=== PATIENT | male | born 1995 | race Caucasian/White ===

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

== ENCOUNTER 2021-05-04 22:02 | Emergency (ER) | payer BC, OTHER ==
[2021-05-04 22:10] VITALS: BP 131/85; RESP 18; TEMP 97.6
--- NOTE | 2021-05-04 22:30 | ED ---
General Adult HPI - General Chief complaint: Chest Pain Stated complaint: R Chest Injury Source: patient, family (Uncle), RN notes reviewed Mode of arrival: ambulatory Limitations: no limitations - History of Present Illness Initial comments: Patient states that he was making coffee standing in the kitchen and his cerebral palsy, similar to lose strength in his legs falling forward and hitting the corner of the counter with his right chest. Patient states that it has progressively been getting worse and hurts to take a deep breath or cough. He states that while he was getting his daughter back today Worse and he called his uncle to bring him to the hospital. He has no bruising to the chest. Denies fevers or any other injuries. Patient states he took Motrin around 9:30 before he ate dinner. He states he does not take any other medications on a daily basis no medical problems other than his cerebral palsy. He states that the pain is 7 out of 10. -: days(s) (5) Location: chest (Right ribs) Radiation: non-radiation Severity scale (1-10): 7 Quality: sharp Consistency: constant Improves with: immobilization Worsens with: movement, other Associated Symptoms: denies other symptoms (Cough) Treatments Prior to Arrival: NSAID (2129) - Related Data Home Medications Medication Instructions Recorded Confirmed No Known Home Medications 11/17/16 11/17/16 Allergies Allergy/AdvReac Type Severity Reaction Status Date / Time amoxicillin Allergy Unknown Verified 05/04/21 22:09 Childhood Sulfa (Sulfonamide Allergy Unknown Verified 05/04/21 22:09 Antibiotics) Childhood Review of Systems ROS Statement: Those systems with pertinent positive or pertinent negative responses have been documented in the HPI. ROS Other: All systems not noted in ROS Statement are negative. Past Medical History Past Medical History: GI Bleed Additional Past Medical History / Comment(s): cerebral palsy History of Any Multi-Drug Resistant Organisms: None Reported Past Surgical History: Back Surgery, Orthopedic Surgery Additional Past Surgical History / Comment(s): clavicle surgery with pin Past Anesthesia/Blood Transfusion Reactions: Postoperative Nausea & Vomiting (PONV) Past Psychological History: No Psychological Hx Reported Past Alcohol Use History: None Reported Past Drug Use History: None Reported - Past Family History Mother Family Medical History: No Reported History General Exam Limitations: no limitations, physical limitation (Cerebral palsy) General appearance: alert, in no apparent distress Head exam: Present: atraumatic, normocephalic, normal inspection Eye exam: Present: normal appearance, PERRL, EOMI. Absent: scleral icterus, conjunctival injection, periorbital swelling Pupils: Present: normal accommodation ENT exam: Present: normal exam, normal oropharynx, mucous membranes moist Neck exam: Present: normal inspection, full ROM. Absent: tenderness, meningismus, lymphadenopathy, thyromegaly Respiratory exam: Present: chest wall tenderness (Right side), decreased breath sounds. Absent: respiratory distress, wheezes, rales, rhonchi (Right side), stridor, accessory muscle use Cardiovascular Exam: Present: regular rate, normal rhythm, normal heart sounds. Absent: systolic murmur, diastolic murmur, rubs, gallop, clicks GI/Abdominal exam: Present: soft, normal bowel sounds. Absent: distended, tenderness, guarding, rebound, rigid Extremities exam: Present: normal inspection, full ROM, normal capillary refill. Absent: tenderness, pedal edema, joint swelling, calf tenderness Back exam: Present: normal inspection, full ROM, other (Scar from previous spinal surgery). Absent: tenderness, CVA tenderness (R), CVA tenderness (L), muscle spasm, paraspinal tenderness, vertebral tenderness, rash noted Neurological exam: Present: alert, oriented X3, CN II-XII intact Psychiatric exam: Present: normal affect, normal mood Skin exam: Present: warm, dry, intact, normal color. Absent: rash, cyanosis, diaphoretic, erythema, urticaria, petechiae, pallor, mottled, abrasion Course Vital Signs 05/04/21 05/04/21 22:04 22:29 Temperature 97.6 F Pulse Rate 86 Respiratory 18 18 Rate Blood Pressure 131/85 O2 Sat by Pulse 98 Oximetry Medical Decision Making - Medical Decision Making Chest x-ray shows no active cardiopulmonary disease no fractures and no pneumothorax. There is a plate fixation in old right clavicle fracture that is intact. Patient's oxygen level is 96% he is having no difficulty breathing. Patient will be directed to take Motrin as needed for pain. Encouraged to deep breath and cough. Patient also directed to return to the emergency room with any fever difficulty in breathing. Case discussed with Dr. Dickson was agreeable to this plan of care. Disposition Clinical Impression: Rib pain on right side Clinical Impression: (Ruled Out): Painful rib Disposition: HOME SELF-CARE Condition: Good Instructions (If sedation given, give patient instructions): Rib Contusion (ED) Additional Instructions: Return to the emergency room with a shortness of breath, coughing up blood, fevers or worsening symptoms. Take Motrin as seen for pain Is patient prescribed a controlled substance at d/c from ED?: No Referrals: None,Stated [Primary Care Provider] - 1-2 days Time of Disposition: 23:39
--- NOTE | 2021-05-04 23:18 | XR ---
EXAMINATION TYPE: XR chest 2V DATE OF EXAM: 05/04/2021 COMPARISON: NONE HISTORY: Fall. Pain. TECHNIQUE: 2 views FINDINGS: Heart and mediastinum are normal. Lungs are clear. Diaphragm is normal. Bony thorax appears normal. There is plate fixing old right clavicle fracture. IMPRESSION: No active cardiopulmonary disease. Normal heart.
[2021-05-04] MEDS ORDERED: ACET/COD 300 MG/30 MG STARTER PACK 6 TAB BTL PO STA (23:39)
[2021-05-05 00:13] VITALS: PULSE 88
== END 2021-05-05 00:13 | disposition home or self-care (01) ==
LOC: EC 22:02
DX: R07.81 Pleurodynia (principal); W22.09XA Striking against other stationary object, initial encounter
CPT/HCPCS: 71046; 99284

== ENCOUNTER 2021-05-10 13:31 | Emergency (ER) | payer OTHER ==
[2021-05-10 13:45] VITALS: BP 133/91; PULSE 108; RESP 18; TEMP 98.7
[2021-05-10] MEDS ORDERED: CLINDAMYCIN 150 MG CAP PO STA (14:08)
--- NOTE | 2021-05-10 14:13 | ED ---
ENT HPI - General Chief complaint: Dental/Oral Stated complaint: dental pain Time Seen by Provider: 05/10/21 13:52 Source: patient Mode of arrival: ambulatory Limitations: no limitations - History of Present Illness Initial comments: 26-year-old male presents emergency Department with a chief complaint of dental pain. Patient reports she developed pain over the last several days. States he was planning on seeing the dentist but cannot get in on time. Reports she has developed swelling to the region as well as tenderness. States the pain is exacerbated with mastication alleviated at rest. Denies any fevers or chills. Not diabetic. Denies changes to his voice, sore throat or drooling. - Related Data Previous Rx's Medication Instructions Recorded Clindamycin [Cleocin] 150 mg PO Q6H #40 capsule 05/10/21 Allergies Allergy/AdvReac Type Severity Reaction Status Date / Time amoxicillin Allergy Unknown Verified 05/10/21 13:45 Childhood Sulfa (Sulfonamide Allergy Unknown Verified 05/10/21 13:45 Antibiotics) Childhood Review of Systems ROS Statement: Those systems with pertinent positive or pertinent negative responses have been documented in the HPI. ROS Other: All systems not noted in ROS Statement are negative. Past Medical History Past Medical History: GI Bleed Additional Past Medical History / Comment(s): cerebral palsy History of Any Multi-Drug Resistant Organisms: None Reported Past Surgical History: Back Surgery, Orthopedic Surgery Additional Past Surgical History / Comment(s): clavicle surgery with pin Past Anesthesia/Blood Transfusion Reactions: Postoperative Nausea & Vomiting (PONV) Past Psychological History: No Psychological Hx Reported Smoking Status: Never smoker Past Alcohol Use History: None Reported Past Drug Use History: None Reported - Past Family History Mother Family Medical History: No Reported History General Exam Limitations: no limitations General appearance: alert, in no apparent distress Head exam: Present: atraumatic, normocephalic, normal inspection Eye exam: Present: normal appearance, PERRL, EOMI Pupils: Present: normal accommodation ENT exam: Present: normal exam, mucous membranes moist. Absent: normal oropharynx (Periapical abscess noted in the right lower region of the mandible.) Neck exam: Present: normal inspection, full ROM. Absent: tenderness, lymphadenopathy Respiratory exam: Present: normal lung sounds bilaterally. Absent: respiratory distress, wheezes, rales, rhonchi, stridor Cardiovascular Exam: Present: regular rate, normal rhythm, normal heart sounds. Absent: systolic murmur Extremities exam: Present: normal inspection, full ROM Back exam: Present: normal inspection, full ROM. Absent: tenderness Neurological exam: Present: alert, oriented X3 Psychiatric exam: Present: normal affect, normal mood Skin exam: Present: warm, dry, intact, normal color Course Vital Signs 05/10/21 13:42 Temperature 98.7 F Pulse Rate 108 H Respiratory 18 Rate Blood Pressure 133/91 O2 Sat by Pulse 96 Oximetry Procedures - Incision & Drainage Consent Obtained: verbal consent Indication: Dental abscess Site: oral Size (cm): 1 Sterile Field Used?: No Needle Aspiration Performed?: Yes I&D Drainage Obtained: Pus, Blood Culture Obtained?: No Complications: pain, bleeding Patient Tolerated Procedure: well, no complications Medical Decision Making - Medical Decision Making 26-year-old male presents to emergency department with a chief complaint of dental pain and facial swelling. On physical examination, periapical abscess in the right lower region of the oral cavity. Incision and drainage performed and was able to get moderate amounts of blood and pus. Patient reported improvement in his symptoms after. The swelling had also decreased as well. Patient will be started on clindamycin because he has an ALLERGY to amoxicillin. Will be discharged with clindamycin. Advised to use salt water rinses. Advised follow-up with the dentist. Case discussed with physician. Disposition Clinical Impression: Dental abscess, Toothache Disposition: HOME SELF-CARE Condition: Stable Instructions (If sedation given, give patient instructions): Abscess (ED) Additional Instructions: Take prescribed medication as directed. Follow with the dentist. Return to emergency department if symptoms worsen. Prescriptions: Clindamycin [Cleocin] 150 mg PO Q6H #40 capsule Is patient prescribed a controlled substance at d/c from ED?: No Referrals: None,Stated [Primary Care Provider] - 1-2 days Time of Disposition: 14:13
== END 2021-05-10 14:31 | disposition home or self-care (01) ==
LOC: EC 13:31
DX: K04.7 Periapical abscess without sinus (principal); Z88.0 Allergy status to penicillin
CPT/HCPCS: 41800; 99282

== ENCOUNTER → 2022-12-01 | Outpatient (CLI) | payer OTHER ==
[2022-12-01 14:37] LABS: African American GFR (CKD) 137.1 (60.0-200.0); Albumin 4.1 g/dL (3.8-4.9); Albumin/Globulin Ratio 1.37 (1.60-3.17); Blood Urea Nitrogen 9.9 mg/dL (9.0-27.0); C Reactive Protein 1.5 mg/dL (0.00-0.80); Calcium 9.4 mg/dL (8.7-10.3); Non-African American GFR(CKD) 118.3 (60.0-200.0); Potassium 3.8 mmol/L (3.5-5.5); Total Bilirubin 0.5 mg/dL (0.30-1.20); Total Protein 7.1 g/dL (6.2-8.2)
[2022-12-01 16:46] LABS: Basophils # (A) 0.05 X 10*3/uL (0.00-0.10); Basophils % (A) 0.6 %; Eosinophils # (A) 0.51 X 10*3/uL (0.04-0.35); Eosinophils % (A) 6.3 %; HCT 45.2 % (39.6-50.0); Immature Grans, Automated 0.6 %; Lymphocytes # (A) 1.58 X 10*3/uL (0.90-5.00); Lymphocytes % (A) 19.6 %; MCH 32.8 pg (27.0-32.0); MCHC 33.2 g/dL (32.0-37.0); MCV 98.9 fL (80.0-97.0); Mean Platelet Volume 8.6 fL (9.5-12.2); Monocytes # (A) 0.66 X 10*3/uL (0.20-1.00); Monocytes % (A) 8.2 %; NRBC Per 100 WBC 0 /100 WBCS (0.0-0.0); Neutrophils # (A) 5.22 X 10*3/uL (1.80-7.70); Neutrophils % (A) 64.7 %; Platelet Count 352 X 10*3/uL (140-440); RBC 4.57 X 10*6/uL (4.40-5.60); RDW 11.9 % (11.5-14.5); WBC 8.07 X 10*3/uL (4.50-10.00)
[2022-12-01 17:06] LABS: Erythrocyte Sedimentation Rate 7 mm/Hr (0-15)
== END | disposition home or self-care (01) ==
LOC: LABWHC1 08:21
PROVIDERS: ATTEND Nurse Practitioner Family
DX: K51.90 Ulcerative colitis, unspecified, without complications (principal)
CPT/HCPCS: 36415; 80053; 85025; 85652; 86140

== ENCOUNTER → 2023-09-19 | Outpatient (CLI) | payer MEDICARE, OTHER ==
[2023-09-19 15:31] LABS: Basophils # (A) 0.07 X 10*3/uL (0.00-0.10); Eosinophils # (A) 0.18 X 10*3/uL (0.04-0.35); Eosinophils % (A) 5.1 %; HCT 44.5 % (39.6-50.0); HGB 15.3 g/dL (13.0-17.0); Immature Grans, Automated 0 %; Lymphocytes # (A) 1.57 X 10*3/uL (0.90-5.00); Lymphocytes % (A) 44.5 %; MCHC 34.4 g/dL (32.0-37.0); MCV 95.9 FL (80.0-97.0); Mean Platelet Volume 9.9 FL (9.5-12.2); Monocytes # (A) 0.37 X 10*3/uL (0.20-1.00); Monocytes % (A) 10.5 %; NRBC Per 100 WBC 0 X 10*3/uL (0.00-0.01); Neutrophils # (A) 1.34 X 10*3/uL (1.80-7.70); Neutrophils % (A) 37.9 %; Platelet Count 293 X 10*3/uL (140-440); RBC 4.64 X 10*6/uL (4.40-5.60); RDW 11.9 % (11.5-14.5); WBC 3.53 X 10*3/uL (4.50-10.00)
[2023-09-19 15:56] LABS: ALT 19 U/L (10-49); AST 22 U/L (14-35); Albumin 4.6 g/dL (3.8-4.9); Albumin/Globulin Ratio 1.92 Ratio (1.60-3.17); Alkaline Phosphatase 66 U/L (41-126); BUN/Creat Ratio 15.88 Ratio (12.00-20.00); Blood Urea Nitrogen 12.7 mg/dL (9.0-27.0); Calcium 9.9 mg/dL (8.7-10.3); Chloride 104 mmol/L (96-109); Globulin 2.4 g/dL (1.6-3.3); Glucose 94 mg/dL (70-110); Potassium 4.2 mmol/L (3.5-5.5); Sodium 141 mmol/L (135-145); Total Bilirubin 0.6 mg/dL (0.3-1.2)
[2023-09-19 17:05] LABS: Erythrocyte Sedimentation Rate 4 mm/Hr (0-15)
[2023-09-19 19:24] LABS: HIV 2 AB Non-Reactive (Non-Reactive); HIV AB P24 Non-Reactive (Non-Reactive); HIV P24 AG Non-Reactive (Non-Reactive)
== END | disposition home or self-care (01) ==
LOC: LABWHC1 10:17
PROVIDERS: ATTEND Internal Medicine Gastroenterology
DX: K51.90 Ulcerative colitis, unspecified, without complications (principal)
CPT/HCPCS: 36415; 80053; 85025; 85652; 86140; 87390

== ENCOUNTER 2024-10-14 16:33 | Inpatient (IN) | payer MEDICARE, MEDICAID ==
--- NOTE | 2024-10-14 17:14 | ED ---
General Adult HPI - General Chief complaint: Psychiatric Symptoms Stated complaint: Mental Health Time Seen by Provider: 10/14/24 16:37 Source: patient, EMS, RN notes reviewed Mode of arrival: EMS Limitations: no limitations - History of Present Illness Initial comments: Patient is a 29-year-old male presenting to the emergency department for mental health evaluation. Patient has not been on medications for a couple of years because they do not help him. Patient admits to be feeling depressed and having thoughts of self-harm. Patient states he does not have specific plan. No homicidal thoughts. No hallucinations. No street drug use. Patient drank alcohol last night, none today. No new physical complaints. - Related Data Previous Rx's Medication Instructions Recorded Clindamycin [Cleocin] 150 mg PO Q6H #40 capsule 05/10/21 Allergies Allergy/AdvReac Type Severity Reaction Status Date / Time amoxicillin Allergy Unknown Verified 10/14/24 16:39 Childhood Sulfa (Sulfonamide Allergy Unknown Verified 10/14/24 16:39 Antibiotics) Childhood Review of Systems ROS Statement: Those systems with pertinent positive or pertinent negative responses have been documented in the HPI. ROS Other: All systems not noted in ROS Statement are negative. Constitutional: Denies: fever Eyes: Denies: eye pain ENT: Denies: ear pain Respiratory: Denies: dyspnea Cardiovascular: Denies: chest pain Psychiatric: Reports: depression, suicidal thoughts. Denies: auditory hallucinations, visual hallucinations, homicidal thoughts Past Medical History Past Medical History: GI Bleed Additional Past Medical History / Comment(s): cerebral palsy History of Any Multi-Drug Resistant Organisms: None Reported Past Surgical History: Back Surgery, Orthopedic Surgery Additional Past Surgical History / Comment(s): clavicle surgery with pin Past Anesthesia/Blood Transfusion Reactions: Postoperative Nausea & Vomiting (PONV) Past Psychological History: Anxiety, Depression, PTSD Smoking Status: Never smoker Past Alcohol Use History: None Reported Past Drug Use History: None Reported - Past Family History Mother Family Medical History: No Reported History General Exam Limitations: no limitations General appearance: alert, in no apparent distress Head exam: Present: normocephalic Eye exam: Present: normal appearance Neck exam: Present: normal inspection Respiratory exam: Present: normal lung sounds bilaterally Cardiovascular Exam: Present: regular rate, normal rhythm GI/Abdominal exam: Present: soft. Absent: tenderness Extremities exam: Present: normal inspection Neurological exam: Present: alert Psychiatric exam: Present: depressed, flat affect Skin exam: Present: normal color Course Vital Signs 10/14/24 16:35 Temperature 98.2 F Pulse Rate 99 Respiratory 20 Rate Blood Pressure 138/100 O2 Sat by Pulse 97 Oximetry Medical Decision Making - Medical Decision Making Was pt. sent in by a medical professional or institution (, PA, WEBSPHERE CONSULTANT, urgent care, hospital, or senior living...) When possible be specific @ -No Did you speak to anyone other than the patient for history (EMS, parent, family, police, friend...)? What history was obtained from this source @ -No Did you review nursing and triage notes (agree or disagree)? Why? @ -I reviewed and agree with nursing and triage notes Were old charts reviewed (outside hosp., previous admission, EMS record, old EKG, old radiological studies, urgent care reports/EKG's, senior living records)? Report findings @ -No old charts were reviewed Differential Diagnosis (chest pain, altered mental status, abdominal pain women, abdominal pain men, vaginal bleeding, weakness, fever, dyspnea, syncope, headache, dizziness, GI bleed, back pain, seizure, CVA, palpatations, mental health, musculoskeletal)? @ -Differential Mental Health Depression, anxiety, bipolar, psychosis, schizophrenia, borderline personality, situational depression, adjustment disorder, behavioral disorder, brain tumor, malingering, substance abuse, encephalopathy, medication reaction, dementia, hypothyroidism, degenerative neurologic disorder, lupus.... This is not meant to be all-inclusive list EKG interpreted by me (3pts min.). @ -As above X-rays interpreted by me (1pt min.). @ -None done CT interpreted by me (1pt min.). @ -None done U/S interpreted by me (1pt. min.). @ -None done What testing was considered but not performed or refused? (CT, X-rays, U/S, labs)? Why? @ -None What meds were considered but not given or refused? Why? @ -None Did you discuss the management of the patient with other professionals (professionals i.e. , HONEY, WEBSPHERE CONSULTANT, lab, RT, psych nurse, social services coordinator, oil inspector, teacher, chief accounting officer, field case manager)? Give summary @ -I did discuss case with mental health nurse with plans for psychiatric admission Was smoking cessation discussed for >3mins.? @ -No Was critical care preformed (if so, how long)? @ -No Were there social determinants of health that impacted care today? How? (Homelessness, low income, unemployed, alcoholism, drug addiction, transportation, low edu. Level, literacy, decrease access to med. care, care home, rehab)? @ -No Was there de-escalation of care discussed even if they declined (Discuss DNR or withdrawal of care, Hospice)? DNR status @ -No What co-morbidities impacted this encounter? (DM, HTN, Smoking, COPD, CAD, Cancer, CVA, ARF, Chemo, Hep., AIDS, mental health diagnosis, sleep apnea, morbid obesity)? @ -History of depression, not currently on medications Was patient admitted / discharged? Hospital course, mention meds given and route, prescriptions, significant lab abnormalities, going to OR and other pertinent info. @ -Patient comes in with depression and suicidal ideation. Patient seen by mental health with plan for psychiatric admission Undiagnosed new problem with uncertain prognosis? @ -No Drug Therapy requiring intensive monitoring for toxicity (Heparin, Nitro, Insu jose antonio, Cardizem)? @ -No Were any procedures done? @ -No Diagnosis/symptom? @ -Depression, suicidal ideation Acute, or Chronic, or Acute on Chronic? @ -Acute, acute Uncomplicated (without systemic symptoms) or Complicated (systemic symptoms)? @ -Default Side effects of treatment? @ -No Exacerbation, Progression, or Severe Exacerbation? @ -No Poses a threat to life or bodily function? How? (Chest pain, [place], [place], pneumonia, PE, COPD, DKA, ARF, appy, cholecystitis, CVA, Diverticulitis, Homicidal, Suicidal, threat to staff... and all critical care pts) @ -No Disposition Clinical Impression: Depression, Suicidal ideation Disposition: TRANSFER TO PSYCH HOSP/UNIT Is patient prescribed a controlled substance at d/c from ED?: No Referrals: Jelly Grissom MD [Primary Care Provider] - 1-2 days Time of Disposition: 18:46
[2024-10-14 19:17] LABS: Amphetamine Screen,Urine Not Detected (NotDetected); Barbiturate Screen,Urine Not Detected (NotDetected); Benzodiazepines Screen,Urine Not Detected (NotDetected); Cocaine Screen,Urine Not Detected (NotDetected); Methadone Screen, Urine Not Detected (NotDetected); Opiate Screen,Urine Not Detected (NotDetected); Oxycodone Screen, Urine Not Detected (NotDetected); Phencyclidine Screen,Urine Not Detected (NotDetected); Tricyclic Antidepressant,Urine Not Detected (NotDetected); Urn Cannabinoid Scrn Detected (NotDetected)
[2024-10-14] MEDS ORDERED: hydrOXYzine HCL 50 MG/ML 1 ML VIAL IM PRN (20:12)
[2024-10-14] MEDS ORDERED: IBUPROFEN 600 MG TAB PO PRN (20:12)
[2024-10-14] MEDS ORDERED: ACETAMINOPHEN TAB 325 MG TAB PO PRN (20:12)
[2024-10-14] MEDS ORDERED: MAGNESIUM HYDROXIDE 2,400 MG/30 ML CUP PO PRN (20:12)
[2024-10-14] MEDS ORDERED: MAG HYDROX/AL HYDROX/SIMETH 355 ML BOTTLE PO PRN (20:12)
[2024-10-14] MEDS: hydrOXYzine HCL 25 MG TAB PO PRN (23:50)
[2024-10-15 07:13] VITALS: RESP 16
[2024-10-15 07:53] LABS: Basophils # (A) 0.1 k/uL (0-0.2); Basophils % (A) 1 %; Eosinophils # (A) 0.4 k/uL (0-0.7); Eosinophils % (A) 6 %; HCT 50.6 % (39.0-53.0); HGB 17.2 gm/dL (13.0-17.5); Lymphocytes # (A) 2.2 k/uL (1.0-4.8); Lymphocytes % (A) 35 %; MCH 33.5 pg (25.0-35.0); MCV 98.6 fL (80.0-100.0); Mean Platelet Volume 6.9; Monocytes # (A) 0.4 k/uL (0-1.0); Monocytes % (A) 6 %; Neutrophils # (A) 3.2 k/uL (1.3-7.7); Neutrophils % (A) 50 %; Platelet Count 290 k/uL (150-450); RBC 5.13 m/uL (4.30-5.90); RDW 12.1 % (11.5-15.5); WBC 6.5 k/uL (3.8-10.6)
[2024-10-15 07:58] LABS: ALT 30 U/L (4-49); AST 32 U/L (17-59); African American GFR (CKD) >90 (>60 ml/min/1.73 sqM); Alkaline Phosphatase 82 U/L (38-126); Anion Gap 9 mmol/L; Bilirubin, Delta 0.1 mg/dL (0.0-0.2); Bilirubin,Unconjugated 1.2 mg/dL (0.0-1.1); Blood Urea Nitrogen 13 mg/dL (9-20); Calcium 9.9 mg/dL (8.4-10.2); Carbon Dioxide 30 mmol/L (22-30); Chloride 102 mmol/L (98-107); Glucose 92 mg/dL (74-99); Non-African American GFR(CKD) >90 (>60 ml/min/1.73 sqM); Potassium 4.1 mmol/L (3.5-5.1); Sodium 141 mmol/L (137-145); Total Bilirubin 1.3 mg/dL (0.2-1.3); Total Protein 7.9 g/dL (6.3-8.2)
[2024-10-15] MEDS: NICOTINE 14MG/24HR PATCH TRANSDERM SCH (08:34)
[2024-10-15 10:38] LABS: Chol/HDL Ratio 3.88 Ratio; LDL Cholesterol,Calculated 109.8 mg/dL (0.0-131.0)
[2024-10-15 10:39] VITALS: BMI 22.0
--- NOTE | 2024-10-15 12:29 | P.HP ---
Psychiatric H&P - . H&P Date: 10/15/24 History & Physical: Allergies Allergy/AdvReac Type Severity Reaction Status Date / Time amoxicillin Allergy Rash/Hives Verified 10/15/24 02:03 Sulfa (Sulfonamide Allergy Unknown Verified 10/15/24 02:03 Antibiotics) Childhood Vital Signs Temp 97.8 F 10/15/24 06:40 Pulse 88 10/15/24 06:40 Resp 16 10/15/24 06:40 BP 126/77 10/15/24 06:40 Pulse Ox 97 10/15/24 06:40 FiO2 Intake & Output 10/14/24 10/15/24 10/15/24 18:59 06:59 18:59 Weight 54.431 kg 54.7 kg 54.7 kg Laboratory Last Values WBC 6.5 k/uL (3.8-10.6) 10/15/24 07:23 RBC 5.13 m/uL (4.30-5.90) 10/15/24 07:23 Hgb 17.2 gm/dL (13.0-17.5) 10/15/24 07:23 Hct 50.6 % (39.0-53.0) 10/15/24 07:23 MCV 98.6 fL (80.0-100.0) 10/15/24 07:23 MCH 33.5 pg (25.0-35.0) 10/15/24 07:23 MCHC 34.0 g/dL (31.0-37.0) 10/15/24 07:23 RDW 12.1 % (11.5-15.5) 10/15/24 07:23 Plt Count 290 k/uL (150-450) 10/15/24 07:23 MPV 6.9 10/15/24 07:23 Neutrophils % 50 % 10/15/24 07:23 Lymphocytes % 35 % 10/15/24 07:23 Monocytes % 6 % 10/15/24 07:23 Eosinophils % 6 % 10/15/24 07:23 Basophils % 1 % 10/15/24 07:23 Neutrophils # 3.2 k/uL (1.3-7.7) 10/15/24 07:23 Lymphocytes # 2.2 k/uL (1.0-4.8) 10/15/24 07:23 Monocytes # 0.4 k/uL (0-1.0) 10/15/24 07:23 Eosinophils # 0.4 k/uL (0-0.7) 10/15/24 07:23 Basophils # 0.1 k/uL (0-0.2) 10/15/24 07:23 Sodium 141 mmol/L (137-145) 10/15/24 07:23 Potassium 4.1 mmol/L (3.5-5.1) 10/15/24 07:23 Chloride 102 mmol/L (98-107) 10/15/24 07:23 Carbon Dioxide 30 mmol/L (22-30) 10/15/24 07:23 Anion Gap 9 mmol/L 10/15/24 07:23 BUN 13 mg/dL (9-20) 10/15/24 07:23 Creatinine 0.88 mg/dL (0.66-1.25) 10/15/24 07:23 Est GFR (CKD-EPI)AfAm >90 (>60 ml/min/1.73 sqM) 10/15/24 07:23 Est GFR (CKD-EPI)NonAf >90 (>60 ml/min/1.73 sqM) 10/15/24 07:23 Glucose 92 mg/dL (74-99) 10/15/24 07:[address] Glu mg/dL 105 mg/dL 10/15/24 07:23 Hemoglobin A1c 5.3 % (<=6.0) 10/15/24 07:23 Calcium 9.9 mg/dL (8.4-10.2) 10/15/24 07:23 Total Bilirubin 1.3 mg/dL (0.2-1.3) 10/15/24 07:23 Conjugated Bilirubin 0.0 mg/dL (0.0-0.3) 10/15/24 07:23 Unconjugated Bilirubin 1.2 mg/dL (0.0-1.1) H 10/15/24 07:23 Delta Bilirubin 0.1 mg/dL (0.0-0.2) 10/15/24 07:23 AST 32 U/L (17-59) 10/15/24 07:23 ALT 30 U/L (4-49) 10/15/24 07:23 Alkaline Phosphatase 82 U/L (38-126) 10/15/24 07:23 Total Protein 7.9 g/dL (6.3-8.2) 10/15/24 07:23 Albumin 5.0 g/dL (3.5-5.0) 10/15/24 07:23 Triglycerides 156.00 mg/dL (0.00-149.00) H 10/15/24 07:23 Cholesterol 190.00 mg/dL (0.00-200.00) 10/15/24 07:23 LDL Cholesterol, Calc 109.8 mg/dL (0.0-131.0) 10/15/24 07:23 VLDL Cholesterol, Calc 31.20 mg/dL (5.00-40.00) 10/15/24 07:23 HDL Cholesterol 49.00 mg/dL (40.00-60.00) 10/15/24 07:23 Cholesterol/HDL Ratio 3.88 Ratio 10/15/24 07:23 TSH 3.100 mIU/L (0.465-4.680) 10/15/24 07:23 Urine Opiates Screen Not Detected (NotDetected) 10/14/24 18:53 Ur Oxycodone Screen Not Detected (NotDetected) 10/14/24 18:53 Urine Methadone Screen Not Detected (NotDetected) 10/14/24 18:53 Ur Barbiturates Screen Not Detected (NotDetected) 10/14/24 18:53 U Tricyclic Antidepress Not Detected (NotDetected) 10/14/24 18:53 Ur Phencyclidine Scrn Not Detected (NotDetected) 10/14/24 18:53 Ur Amphetamines Screen Not Detected (NotDetected) 10/14/24 18:53 U Methamphetamines Scrn Not Detected (NotDetected) 10/14/24 18:53 U Benzodiazepines Scrn Not Detected (NotDetected) 10/14/24 18:53 Urine Cocaine Screen Not Detected (NotDetected) 10/14/24 18:53 U Marijuana (THC) Screen Detected (NotDetected) H 10/14/24 18:53 Influenza Type A (PCR) Not Detected (Not Detectd) 10/14/24 18:55 Influenza Type B (PCR) Not Detected (Not Detectd) 10/14/24 18:55 RSV (PCR) Not Detected (Not Detectd) 10/14/24 18:55 SARS-CoV-2 (PCR) Not Detected (Not Detectd) 10/14/24 18:55 10/15/24 11:46 IDENTIFYING DATA: Patient is a 29-year-old male, currently lives in a trailer with his ex girlfriend. He has no kids, he is currently single, he collect Social Security and also works part-time in a warehouse. HPI: Patient presented to the hospital yesterday complaining of depression, being off his medications and endorsing suicidal ideations with no plan according to ER report. Patient has never been admitted to mental health unit, was admitted voluntarily last night. He has history of cerebral palsy. He was agreeable to speak to documentation writer today in the office. States that he was feeling very depressed and had a "PTSD event" however is fairly vague about what this meant. States that he was feeling suicidal for the past few days. Claims that he had a plan to "go out of state and get euthanasia". Claims that he has been feeling very overwhelmed lately, more anxious. Also endorsed having family issues. Specifically talking about his family members accusing his acts she was "touching my knees" which he believes was a false accusation. States that he is having trust issues within his family and other people. Claims that his sleep and appetite are poor at this time. He did appear to have poor eye contact, disheveled appearance. Patient denies any current suicidal or homicidal ideations intent or plan. At this time patient denies any auditory or visual hallucinations. Patient denies any flight of ideas racing thoughts and increased in goal directed behavior. Patient admits to using alcohol occasionally, marijuana occasionally, denies any cigarette use or any other recreational drug use. PAST PSYCHIATRIC HISTORY: Patient has a history of depression, self-reported PTSD anxiety. He claims that he was previously on Lexapro however believes it did not help. Been off the medications for several years. Patient denies any previous psychiatric hospitalizations. Patient denies any psychiatric outpatient follow-up. Patient denies any history of suicide attempts in the past. Past Medical History: GI Bleed Additional Past Medical History / Comment(s): cerebral palsy History of Any Multi-Drug Resistant Organisms: None Reported Past Surgical History: Back Surgery, Orthopedic Surgery Additional Past Surgical History / Comment(s): clavicle surgery with pin Past Anesthesia/Blood Transfusion Reactions: Postoperative Nausea & Vomiting (PONV) Past Psychological History: Anxiety, Depression, PTSD Smoking Status: Never smoker Past Alcohol Use History: None Reported Past Drug Use History: None Reported ALLERGIES: as per EMR CHEMICAL DEPENDENCY HISTORY: as per HPI FAMILY PSYCHIATRIC/SUBSTANCE USE HISTORY: Claims that his sister has some form of mental illness SOCIAL HISTORY: Patient was born and raised in [place] and then moved to [facility]. Claims that he completed high school took special education courses. He denies any legal history. He currently lives with his ex- girlfriend in a trailer. He is single. He has no kids. He collect Social Security and also works part-time in a warehouse. MENTAL STATUS EXAM: General Appearance: Patient appears to be thin, has long hair, disheveled appearance, stated age is alert, directable, and attempts to cooperate. Patient appears to have poor hygiene and grooming. Behavior: Patient is seated without any agitated behavior. Poor eye contact. Attempts to cooperate Speech: Patient's speech is fluent and nonpressured. Hesitant, concrete Mood/Affect: Patient reports their mood is depressed and anxious, affect is congruent and constricted. Suicidality/Homicidality: Patient denies having any homicidal ideation intent or plan. Denies any suicidal ideations intent or plan Perceptions: Patient denies any visual hallucinations and denies any auditory hallucinations Though content/process: There is no evidence of any delusional thought content and thought process is linear and goal-directed. [place], evasive at times Memory and concentration: AOX3, grossly intact for the purposes of this session. Can spell "WORLD" backwards Judgment and insight: Poor STRENGTHS/WEAKNESSES: strength is that patient is resilient. Weakness is that patient has poor judgment and is impulsive INTELLECT: Average IMPRESSIONS: Major depressive disorder, without psychotic features Anxiety disorder unspecified Cannabis use disorder, mild abuse PLAN: -Patient is admitted under voluntary status to MHU for stabilization of psychiatric symptoms and safety. Patient has signed adult voluntary form and medication consent and is placed in patient's chart. -Medications : Zoloft 25 mg nightly for mood/anxiety, Seroquel 50 mg nightly for mood stabilization/insomnia/appetite -vistaril PRN for anxiety -Patient was counselled on substance abuse and desired to cut back on use -Patient was informed of the risks, benefits and side effects of the medication and patient verbally consented to taking the medications. Patient signed med consent form and was placed in chart. -Internal Medicine consult to perform medical evaluation and physical. -NRT -not needed as patient does not smoke -SW on board for discharge planning. Encourage patient to participate in groups to work on coping skills.
[2024-10-15] MEDS: QUEtiapine 50 MG TAB PO SCH (20:35)
[2024-10-15] MEDS: SERTRALINE 25 MG TAB PO SCH (20:35)
[2024-10-15] MEDS ORDERED: SERTRALINE 50 MG TAB PO SCH (21:00)
--- NOTE | 2024-10-16 09:50 | P.MDCNMH ---
History of Present Illness H&P Date: 10/15/24 This is a pleasant 29-year-old male who presented to the emergency department with increased depression and suicidal thoughts of harming himself and here for mental evaluation. Patient follows with Dr. Ruben Wade in the outpatient setting with a past medical history of cerebral palsy, anxiety, depression, PTSD. Patient reports he vapes with marijuana and denies illicit drug use, denies tobacco use, and very rarely drinks. Patient did have some drinks prior to admission. Patient voluntarily admitted to [facility] for further psychiatric evaluation and medication adjustments. Patient reports he had been previously on medications although later were not helping and has not been taking. Patient following with [facility] in the outpatient setting. On exam patient reports his recent ex-girlfriend is living in his house and they recently and she began seeing one of his other good friends. Patient reports this triggered increasing thoughts of depression and suicidal ideation with no plan. On exam patient denies chest pain or shortness of breath currently on room air reports to tolerating diet with no reported nausea or vomiting. Patient awaiting to see psychiatrist and discuss medications. Patient has been instructed to follow-up with [facility] outpatient as well as compliance with group therapy sessions REVIEW OF SYSTEMS: CONSTITUTIONAL: No fever, no malaise, no fatigue. HEENT: No recent visual problems or hearing problems. Denied any sore throat. CARDIOVASCULAR: No chest pain, orthopnea, PND, no palpitations, no syncope. PULMONARY: No shortness of breath, no cough, no hemoptysis. GASTROINTESTINAL: No diarrhea, no nausea, no vomiting, no abdominal pain. NEUROLOGICAL: No headaches, no weakness, no numbness. HEMATOLOGICAL: Denies any bleeding or petechiae. GENITOURINARY: Denies any burning micturition, frequency, or urgency. MUSCULOSKELETAL/RHEUMATOLOGICAL: Denies any joint pain, swelling, or any muscle pain. ENDOCRINE: Denies any polyuria or polydipsia. The rest of the 14-point review of systems is negative. PHYSICAL EXAMINATION: GENERAL: The patient is alert and oriented x3, not in any acute distress. Well developed, well nourished. HEENT: Pupils are round and equally reacting to light. EOMI. No scleral icterus. No conjunctival pallor. Normocephalic, atraumatic. No pharyngeal erythema. No thyromegaly. CARDIOVASCULAR: S1 and S2 present. No murmurs, rubs, or gallops. PULMONARY: Chest is clear to auscultation, no wheezing or crackles. ABDOMEN: Soft, nontender, nondistended, normoactive bowel sounds. No palpable organomegaly. MUSCULOSKELETAL: No joint swelling or deformity. EXTREMITIES: No cyanosis, clubbing, or pedal edema. NEUROLOGICAL: Gross neurological examination did not reveal any focal deficits. SKIN: No rashes. Assessment: Depression with suicidal thoughts History of anxiety/depression/PTSD THC use with vaping History of cerebral palsy Full code Plan: Patient was involuntarily admitted to [facility] for further psychiatric evaluation and care. Patient has not been taking medications in over 2 years as he reports they were not helping Patient has been instructed to follow-up with primary care provider on discharge as well as [facility] Thank you kindly for this consultation. The impression and plan of care has been dictated by Laura Cheatham, Nurse Practitioner as directed. Dr. Cara MD I have performed a history and examination and MDM of this patient, discussed the same with the dictator, and agree with the dictator's assessment and plan as written ,documented as a scribe. Based on total visit time, I have performed more than 50% of the visit. Past Medical History Past Medical History: GI Bleed Additional Past Medical History / Comment(s): cerebral palsy History of Any Multi-Drug Resistant Organisms: None Reported Past Surgical History: Back Surgery, Orthopedic Surgery Additional Past Surgical History / Comment(s): clavicle surgery with pin Past Anesthesia/Blood Transfusion Reactions: Postoperative Nausea & Vomiting (PONV) Smoking Status: Never smoker - Past Family History Mother Family Medical History: No Reported History Medications and Allergies Home Medications Medication Instructions Recorded Confirmed Type No Known Home Medications 10/14/24 10/14/24 History Allergies Allergy/AdvReac Type Severity Reaction Status Date / Time amoxicillin Allergy Rash/Hives Verified 10/15/24 02:03 Sulfa (Sulfonamide Allergy Unknown Verified 10/15/24 02:03 Antibiotics) Childhood Physical Exam Vitals: Vital Signs Temp Pulse Pulse Resp BP BP Pulse Ox 10/15/24 06:40 97.8 F 88 16 126/77 97 10/15/24 01:24 97.9 F 113 H 18 146/90 96 10/14/24 22:56 98.6 F 18 L 110 H 137/93 95 12/15/24 16:35 98.2 F 99 20 138/100 97 Intake and Output 10/14/24 10/15/24 10/15/24 22:59 06:59 14:59 Other: Weight 54.431 kg 54.7 kg Cranial Nerve Examination - Cranial Nerves Cranial Nerve I- Olfactory: Intact Cranial Nerve II- Optic: Intact Cranial Nerve III- Oculomotor: Intact Cranial Nerve IV- Trochlear: Intact Cranial Nerve V- Trigeminal: Intact Cranial Nerve - Abducens: Intact Cranial Nerve VII- Facial: Intact Cranial Nerve VIII- Auditory: Intact Cranial Nerve IX- Glossopharyngeal: Intact Cranial Nerve X- Vagus: Intact Cranial Nerve XI- Accessory: Intact Cranial Nerve XII- Hypoglossal: Intact Results CBC & Chem 7: 10/15/24 07:23 10/15/24 07:23 Labs: Abnormal Lab Results - Last 24 Hours (Table) 10/14/24 10/15/24 Range/Units 18:53 07:23 Unconjugated Bilirubin 1.2 H (0.0-1.1) mg/dL U Marijuana (THC) Screen Detected H (NotDetected)
--- NOTE | 2024-10-16 11:18 | P.PN ---
Progress Note - Text Progress Note Date: 10/16/24 Interval History: Patient was seen today in the hallways and was agreeable to speak to signwriter in the office. Patient claims that he is doing a bit better today, claims that his mood and anxiety been mildly improving since being on the unit. He states that he was able to sleep a bit better last night. We continue to speak about the medications and the adjustment needed, he is agreeable to this. States that he does feel anxious going to groups, speaks of continued anxiety while being on [facility] unit. He is not reporting any side effects at this time. States that he showered yesterday, has been eating his meals. At this time he is denying any suicidal homicidal ideations intent or plan. Denying any auditory or visual hallucinations. MENTAL STATUS EXAM: General Appearance: Patient appears to be thin, has long hair, stated age is alert, directable, and attempts to cooperate. Patient appears to have fair hygiene and grooming. Behavior: Patient is seated without any agitated behavior. Improving eye contact. Attempts to cooperate Speech: Patient's speech is fluent and nonpressured. Hesitant, concrete, improving Mood/Affect: Patient reports their mood is depressed and anxious improving mildly, affect is congruent and constricted. Improving mildly Suicidality/Homicidality: Patient denies having any homicidal ideation intent or plan. Denies any suicidal ideations intent or plan Perceptions: Patient denies any visual hallucinations and denies any auditory hallucinations Though content/process: There is no evidence of any delusional thought content and thought process is linear and goal-directed. Memory and concentration: AOX3, grossly intact for the purposes of this session Judgment and insight: Poor, improving mildly IMPRESSIONS: Major depressive disorder, without psychotic features Anxiety disorder unspecified Cannabis use disorder, mild abuse PLAN: -Patient is admitted under voluntary status to MHU for stabilization of psychiatric symptoms and safety. Patient has signed adult voluntary form and medication consent and is placed in patient's chart. -Medications : Increase Zoloft 50 mg nightly for mood/anxiety, Seroquel 50 mg nightly for mood stabilization/insomnia/appetite -vistaril PRN for anxiety -NRT -not needed as patient does not smoke -SW on board for discharge planning. Encourage patient to participate in groups to work on coping skills. likely discharge either vs tuesday back home if patient is improving psychiatrically
[2024-10-16] MEDS: SERTRALINE 50 MG TAB PO SCH (21:21)
--- NOTE | 2024-10-17 10:32 | P.PN ---
Progress Note - Text Progress Note Date: 10/17/24 Interval History: Patient was seen today in the lounge talking with another patient, he was agre eable to speak to writer technical publications today in the office. He was joking around at times about different patients on the unit and not taking his treatment seriously. He states that he stopped taking the Zoloft and Seroquel last night and states that "it was making my heart race too much". He continues to claim that he is having depression and anxiety, we spoke about other options he was somewhat hesitant to try other medications. He claims that he was "lied to" and believed that there was going to be "only therapy" on the unit. Patient states that he stayed up late last night, did not get much sleep, has a fair appetite. He refused his medications last night. At this time he is denying any current suicidal homicidal ideations intent or plan. Denying any auditory or visual hallucinations. MENTAL STATUS EXAM: General Appearance: Patient appears to be thin, has long hair, stated age is alert, directable, and attempts to cooperate. Patient appears to have fair hygiene and grooming. Behavior: Patient is seated without any agitated behavior. Improving eye contact. Attempts to cooperate Speech: Patient's speech is fluent and nonpressured. Hesitant, concrete, improving Mood/Affect: Patient reports their mood is anxious improving mildly, affect is congruent and Improving mildly Suicidality/Homicidality: Patient denies having any homicidal ideation intent or plan. Denies any suicidal ideations intent or plan Perceptions: Patient denies any visual hallucinations and denies any auditory hallucinations Though content/process: There is no evidence of any delusional thought content and thought process is linear and goal-directed. Memory and concentration: AOX3, grossly intact for the purposes of this session Judgment and insight: Poor, superficial, improving mildly IMPRESSIONS: Major depressive disorder, without psychotic features Anxiety disorder unspecified Cannabis use disorder, mild abuse PLAN: -Patient is admitted under voluntary status to MHU for stabilization of ps ychiatric symptoms and safety. Patient has signed adult voluntary form and medication consent and is placed in patient's chart. -Medications : Discontinue Zoloft, replace with Lexapro 5 mg daily for mood/anxiety, decrease Seroquel 25 mg nightly for mood stabilization/insomnia/appetite -vistaril PRN for anxiety -NRT -not needed as patient does not smoke -SW on board for discharge planning. Encourage patient to participate in groups to work on coping skills. likely discharge either vs tuesday back home if patient is improving psychiatrically and taking medications.
[2024-10-17] MEDS: ESCITALOPRAM 5 MG TAB PO SCH (12:01)
[2024-10-17] MEDS: QUEtiapine 25 MG TAB PO SCH (21:50)
--- NOTE | 2024-10-18 10:22 | P.PN ---
Progress Note - Text Progress Note Date: 10/18/24 Interval History: Patient was seen today wandering the hallways agreeable to speak to content writer in the office. Patient has been taking his medications since yesterday. Claims that he is finding it is helping a bit with his mood and anxiety. He is not reporting any significant side effects at this time besides a mild headache. He claims that he is more agreeable to continue on with the medications at this time, does not want the doses adjusted, states that he wants to get used to it. States that he is trying to go to some groups, appears to be more cooperative today less joking around. States that he slept a bit better last night with his with the Seroquel. At this time he is denying any current suicidal homicidal ideations intent or plan. Denying any auditory or visual hallucinations. MENTAL STATUS EXAM: General Appearance: Patient appears to be thin, has long hair, stated age is alert, directable, and attempts to cooperate. Patient appears to have fair hygiene and grooming. Behavior: Patient is seated without any agitated behavior. Improving eye contact. More cooperative today Speech: Patient's speech is fluent and nonpressured. , improving Mood/Affect: Patient reports their mood improving mildly, affect is congruent and Improving mildly Suicidality/Homicidality: Patient denies having any homicidal ideation intent or plan. Denies any suicidal ideations intent or plan Perceptions: Patient denies any visual hallucinations and denies any auditory hallucinations Though content/process: There is no evidence of any delusional thought content and thought process is linear and goal-directed. Memory and concentration: AOX3, grossly intact for the purposes of this session Judgment and insight: superficial, improving mildly IMPRESSIONS: Major depressive disorder, without psychotic features Anxiety disorder unspecified Cannabis use disorder, mild abuse PLAN: -Patient is admitted under voluntary status to MHU for stabilization of psychiatric symptoms and safety. Patient has signed adult voluntary form and medication consent and is placed in patient's chart. -Medications : Lexapro 5 mg daily for mood/anxiety, Seroquel 25 mg nightly for mood stabilization/insomnia/appetite -vistaril PRN for anxiety -NRT -not needed as patient does not smoke -SW on board for discharge planning. Encourage patient to participate in groups to work on coping skills. likely discharge tuesday back home if patient is improving psychiatrically and taking medications.
[2024-10-18] MEDS: amLODIPine 5 MG TAB PO SCH (10:49)
[2024-10-19 06:14] VITALS: BP 99/62; PULSE 95; TEMP 98.4
--- NOTE | 2024-10-19 10:17 | P.DS ---
Providers Date of admission: 10/14/24 19:58 Expected date of discharge: 10/19/24 Attending physician: Zaki Deal MD Consults: 10/14/24 20:12 Consult Physician Routine Consulting Provider: Samson Wade Consult Reason/Comments: Medical H&P Do you want consulting provider notified?: Yes Primary care physician: Jelly Grissom - Discharge Diagnosis(es) (1) Major depressive disorder without psychotic features Current Visit: Yes Status: Acute Priority: High (2) Anxiety disorder Current Visit: Yes Status: Acute Priority: High (3) Cannabis use disorder, mild, abuse Current Visit: Yes Status: Acute Priority: Medium Hospital Course: Admission HPI: Admission note was completed by play writer "patient is a 29-year-old male, currently lives in a trailer with his ex girlfriend. He has no kids, he is currently single, he collect Social Security and also works part-time in a warehouse. Patient presented to the hospital yesterday complaining of depression, being off his medications and endorsing suicidal ideations with no plan according to ER report. Patient has never been admitted to mental health unit, was admitted voluntarily last night. He has history of cerebral palsy. He was agreeable to speak to play writer today in the office. States that he was feeling very depressed and had a "PTSD event" however is fairly vague about what this meant. States that he was feeling suicidal for the past few days. Claims that he had a plan to "go out of state and get euthanasia". Claims that he has been feeling very overwhelmed lately, more anxious. Also endorsed having family issues. Specifically talking about his family members accusing his acts she was "touching my knees" which he believes was a false accusation. States that he is having trust issues within his family and other people. Claims that his sleep and appetite are poor at this time. He did appear to have poor eye contact, disheveled appearance. Patient denies any current suicidal or homicidal ideations intent or plan. At this time patient denies any auditory or visual hallucinations. Patient denies any flight of ideas racing thoughts and increased in goal directed behavior. Patient admits to using alcohol occasionally, marijuana occasionally, denies any cigarette use or any other recreational drug use." Hospital course: Upon admission to the unit patient was directable and agreeable to commence treatment and signed adult voluntary form. Patient got along well with other patients on the unit and followed unit protocol. Patient was compliant with the medications and denied any side effects throughout hospital course. Patient was started on Zoloft however did not tolerate it well, agreed to switch to Lexapro 5 mg daily for mood/anxiety. Patient was also started on Seroquel 25 mg nightly for mood stabilization/insomnia/appetite. Atarax as needed for anxiety. Patient spoke of his stressors and engaged in therapy both group and individual. Patient was also seen by medical team for history and physical exam. Patient was also started on Norvasc for elevated blood pressure. Throughout the course of the hospitalization patient gradually improved with regards to mood, anxiety, suicidal thoughts, sleep and returned back to their baseline level of functioning. On the day of discharge patient denied any suicidal or homicidal ideations intent or plan denied any auditory or visual hallucinations. Patient endorsed wanting to live for their health and family. The patient denied any access to guns or weapons. Patient denied any paranoia and did not endorse any delusions. Patient does have a significant history of substance abuse and was counseled on abstaining from all substances including alcohol and marijuana. Patient elected to do outpatient substance use treatment program through their outpatient provider.. Patient was also counseled on the medications and need for regular compliance and was encouraged to follow-up with their outpatient appointment for mental health and also for primary care. Prior to discharge a family meeting will be arranged by licensed master social worker to answer any questions and ensure safety upon discharge incuding making sure that guns/weapons are either removed from the home or locked away. Mental status exam: General Appearance: Patient appears to be thin, has longer hair, stated age is alert, pleasant, and cooperative. Patient is in no acute distress and has improved hygiene and grooming Behavior: Patient is calmly seated without any agitated behavior. Speech: Patient's speech is fluent and nonpressured. Mood/Affect: Patient reports their mood is "good", affect is congruent and euthymic. Suicidality/Homicidality: Patient denies having any suicidal or homicidal ideation intent or plan. Perceptions: Patient denies any auditory or visual hallucinations. Though content/process: There is no evidence of any delusional thought content and thought process is linear and goal-directed. More future oriented Memory and concentration: AOX3, grossly intact for the purposes of this session. Can spell "WORLD" backwards correctly. Judgment and insight: improved with guarded prognosis Impression: Major depressive disorder, without psychotic features Plan: -Continue with discharge today as patient has improved and stabilized p sychiatrically and is not currently an imminent threat to themself and/or others. Patient will remain at chronically elevated risk for harm to self and/or others due to their impulsivity and substance abuse. -Continue medications: Lexapro 5 mg daily for mood/anxiety, Seroquel 25 mg nightly for mood stabilization/insomnia/appetite. -Patient was counseled on the need for medication compliance and appropriate follow-up at mental health and also primary care for medical issues. Patient verbalized understanding and agreed. -Social work to help coordinate patients discharge today. also to ensure safe home environment that guns/weapons are either removed from the home or locked away. Social work also to arrange for patients follow up appointments with [facility] for psychiatric care along with follow up with primary care provider. -Patient counseled on abstaining from recreational drugs and marijuana and alcohol. Was informed/educated on the adverse effects on their physical and mental health. Patient verbally agreed and understood. Patient was offered substance abuse treatment however declined at this time. -Patient was instructed to return to the hospital or seek immediate medical care if their psychiatric or medical symptoms do worsen or reoccur. Allergies Allergy/AdvReac Type Severity Reaction Status Date / Time amoxicillin Allergy Rash/Hives Verified 10/15/24 02:03 Sulfa (Sulfonamide Allergy Unknown Verified 10/15/24 02:03 Antibiotics) Childhood Laboratory Results WBC 6.5 k/uL (3.8-10.6) 10/15/24 07:23 RBC 5.13 m/uL (4.30-5.90) 10/15/24 07:23 Hgb 17.2 gm/dL (13.0-17.5) 10/15/24 07:23 Hct 50.6 % (39.0-53.0) 10/15/24 07:23 MCV 98.6 fL (80.0-100.0) 10/15/24 07:23 MCH 33.5 pg (25.0-35.0) 10/15/24 07:23 MCHC 34.0 g/dL (31.0-37.0) 10/15/24 07:23 RDW 12.1 % (11.5-15.5) 10/15/24 07:23 Plt Count 290 k/uL (150-450) 10/15/24 07:23 MPV 6.9 10/15/24 07:23 Neutrophils % 50 % 10/15/24 07:23 Lymphocytes % 35 % 10/15/24 07:23 Monocytes % 6 % 10/15/24 07:23 Eosinophils % 6 % 10/15/24 07:23 Basophils % 1 % 10/15/24 07:23 Neutrophils # 3.2 k/uL (1.3-7.7) 10/15/24 07:23 Lymphocytes # 2.2 k/uL (1.0-4.8) 10/15/24 07:23 Monocytes # 0.4 k/uL (0-1.0) 10/15/24 07:23 Eosinophils # 0.4 k/uL (0-0.7) 10/15/24 07:23 Basophils # 0.1 k/uL (0-0.2) 10/15/24 07:23 Sodium 141 mmol/L (137-145) 10/15/24 07:23 Potassium 4.1 mmol/L (3.5-5.1) 10/15/24 07:23 Chloride 102 mmol/L (98-107) 10/15/24 07:23 Carbon Dioxide 30 mmol/L (22-30) 10/15/24 07:23 Anion Gap 9 mmol/L 10/15/24 07:23 BUN 13 mg/dL (9-20) 10/15/24 07:23 Creatinine 0.88 mg/dL (0.66-1.25) 10/15/24 07:23 Est GFR (CKD-EPI)AfAm >90 (>60 ml/min/1.73 sqM) 10/15/24 07:23 Est GFR (CKD-EPI)NonAf >90 (>60 ml/min/1.73 sqM) 10/15/24 07:23 Glucose 92 mg/dL (74-99) 10/15/24 07:[address] Glu mg/dL 105 mg/dL 10/15/24 07:23 Hemoglobin A1c 5.3 % (<=6.0) 10/15/24 07:23 Calcium 9.9 mg/dL (8.4-10.2) 10/15/24 07:23 Total Bilirubin 1.3 mg/dL (0.2-1.3) 10/15/24 07:23 Conjugated Bilirubin 0.0 mg/dL (0.0-0.3) 10/15/24 07:23 Unconjugated Bilirubin 1.2 mg/dL (0.0-1.1) H 10/15/24 07:23 Delta Bilirubin 0.1 mg/dL (0.0-0.2) 10/15/24 07:23 AST 32 U/L (17-59) 10/15/24 07:23 ALT 30 U/L (4-49) 10/15/24 07:23 Alkaline Phosphatase 82 U/L (38-126) 10/15/24 07:23 Total Protein 7.9 g/dL (6.3-8.2) 10/15/24 07:23 Albumin 5.0 g/dL (3.5-5.0) 10/15/24 07:23 Triglycerides 156.00 mg/dL (0.00-149.00) H 10/15/24 07:23 Cholesterol 190.00 mg/dL (0.00-200.00) 10/15/24 07:23 LDL Cholesterol, Calc 109.8 mg/dL (0.0-131.0) 10/15/24 07:23 VLDL Cholesterol, Calc 31.20 mg/dL (5.00-40.00) 10/15/24 07:23 HDL Cholesterol 49.00 mg/dL (40.00-60.00) 10/15/24 07:23 Cholesterol/HDL Ratio 3.88 Ratio 10/15/24 07:23 TSH 3.100 mIU/L (0.465-4.680) 10/15/24 07:23 Urine Opiates Screen Not Detected (NotDetected) 10/14/24 18:53 Ur Oxycodone Screen Not Detected (NotDetected) 10/14/24 18:53 Urine Methadone Screen Not Detected (NotDetected) 10/14/24 18:53 Ur Barbiturates Screen Not Detected (NotDetected) 10/14/24 18:53 U Tricyclic Antidepress Not Detected (NotDetected) 12/15/24 18:53 Ur Phencyclidine Scrn Not Detected (NotDetected) 10/14/24 18:53 Ur Amphetamines Screen Not Detected (NotDetected) 10/14/24 18:53 U Methamphetamines Scrn Not Detected (NotDetected) 10/14/24 18:53 U Benzodiazepines Scrn Not Detected (NotDetected) 10/14/24 18:53 Urine Cocaine Screen Not Detected (NotDetected) 10/14/24 18:53 U Marijuana (THC) Screen Detected (NotDetected) H 10/14/24 18:53 Influenza Type A (PCR) Not Detected (Not Detectd) 10/14/24 18:55 Influenza Type B (PCR) Not Detected (Not Detectd) 10/14/24 18:55 RSV (PCR) Not Detected (Not Detectd) 10/14/24 18:55 SARS-CoV-2 (PCR) Not Detected (Not Detectd) 10/14/24 18:55 Vital Signs Temp 98.4 F 10/19/24 06:13 Pulse 95 10/19/24 06:13 Resp 16 10/19/24 06:13 BP 99/62 10/19/24 06:13 Pulse Ox 97 10/19/24 06:13 FiO2 Patient Condition at Discharge: Stable Plan - Discharge Summary Discharge Rx Participant: Yes New Discharge Prescriptions: New Escitalopram [Lexapro] 5 mg PO DAILY 30 Days #30 tab QUEtiapine [SEROquel] 25 mg PO HS 30 Days #30 tab amLODIPine [Norvasc] 2.5 mg PO DAILY 30 Days #30 tablet hydrOXYzine HCL [Atarax] 25 mg PO DAILY PRN 30 Days #30 tab PRN Reason: Anxiety Discharge Medication List Escitalopram [Lexapro] 5 mg PO DAILY 30 Days #30 tab 10/19/24 [Rx] QUEtiapine [SEROquel] 25 mg PO HS 30 Days #30 tab 10/19/24 [Rx] amLODIPine [Norvasc] 2.5 mg PO DAILY 30 Days #30 tablet 10/19/24 [Rx] hydrOXYzine HCL [Atarax] 25 mg PO DAILY PRN 30 Days #30 tab 10/19/24 [Rx] Follow up Appointment(s)/Referral(s): [facility] [Outside] - 10/19/24 1:30 pm (10/19/2024 1:30PM - 2:30PMService: [id number] LOWECasemanagement Unit/Supports Coordination 11/01/2024 12:15PM - 1:00PMService: [id number] Jelly Grissom MD [Primary Care Provider] - 1-2 days Activity/Diet/Wound Care/Special Instructions: Avoid the use of street drugs and alcohol. Take all medications as prescribed. When you are in need of refills on your medications, please contact your medical provider and/or outpatient psychiatrist/provider to have this done. Please go to your scheduled outpatient appointment for aftercare treatment. If symptoms return or become worse, call the crisis line at and/or go to the nearest emergency room for evaluation. National Suicide Hotline 798 Follow up with PCP after discharge for Thyroid Ultra Sound. Discharge Disposition: HOME SELF-CARE
== END 2024-10-19 12:26 | disposition home or self-care (01) | DRG 881 ==
LOC: SUPCPDRO 16:33 → EC 16:33 → 3MHU 19:58
PROVIDERS: ADMIT Psychiatry & Neurology Psychiatry; ATTEND Psychiatry & Neurology Psychiatry
DX: F32.9 Major depressive disorder, single episode, unspecified (principal); R45.851 Suicidal ideations; F41.9 Anxiety disorder, unspecified; F12.10 Cannabis abuse, uncomplicated; G80.9 Cerebral palsy, unspecified; G47.00 Insomnia, unspecified; F43.10 Post-traumatic stress disorder, unspecified; F17.290 Nicotine dependence, other tobacco product, uncomplicated; Z88.0 Allergy status to penicillin; Z88.2 Allergy status to sulfonamides; Z79.899 Other long term (current) drug therapy
CPT/HCPCS: 80053; 80061; 80306; 82075; 82248; 83036; 84443; 85025; 87636; 99285